=== PATIENT | female | born 1995 | race Caucasian/White ===

== ENCOUNTER → 2019-02-10 | Outpatient (CLI) | payer MEDICAID ==
[2019-02-10 11:31] LABS: BASOPHILS % (AUTO) 0 % (0-10); EOSINOPHILS % (AUTO) 3 % (0-10); HEMATOCRIT 39 % (35-52); HEMOGLOBIN 13.1 G/DL (11.5-16.0); LYMPHOCYTES % (AUTO) 22 % (12-44); MEAN CORPUSCULAR HEMOGLOBIN 28 PG (25-34); MEAN CORPUSCULAR HGB CONC 33 G/DL (32-36); MEAN CORPUSCULAR VOLUME 83 FL (80-99); MEAN PLATELET VOLUME 10.6 FL (7.4-10.4); MONOCYTES % (AUTO) 5 % (0-12); NEUTROPHILS % (AUTO) 70 % (42-75); PLATELET COUNT 265 10^3/uL (130-400); RED CELL DISTRIBUTION WIDTH 12.5 % (10.0-14.5); WHITE BLOOD COUNT 9.7 10^3/uL (4.3-11.0)
[2019-02-10 11:32] LABS: EOSINOPHILS # (AUTO) 0.3 10^3/uL (0.0-0.3); LYMPHOCYTES # (AUTO) 2.1 X 10^3 (1.0-4.0); MONOCYTES # (AUTO) 0.5 X 10^3 (0.0-1.0); NEUTROPHILS # (AUTO) 6.8 X 10^3 (1.8-7.8)
== END ==
LOC: LAB FS 10:12
PROVIDERS: ATTEND Family Medicine
DX: Z34.80 Encounter for supervision of other normal pregnancy, unspecified trimester (principal); Z3A.00 Weeks of gestation of pregnancy not specified
CPT/HCPCS: 36415; 84443; 85025; 86703; 86762; 86780; 86850; 86900; 86901; 87088; 87340

== ENCOUNTER → 2019-04-15 | Outpatient (CLI) | payer MEDICAID | LOC: LAB FS 15:55 | PROVIDERS: ATTEND Family Medicine | DX: Z34.80 Encounter for supervision of other normal pregnancy, unspecified trimester (principal) | CPT/HCPCS: 36415; 82105; 82677; 84702; 86336 ==

== ENCOUNTER → 2019-06-15 | Outpatient (CLI) | payer MEDICAID ==
[2019-06-15 11:32] LABS: BASOPHILS % (AUTO) 0 % (0-10); EOSINOPHILS # (AUTO) 0.3 10^3/uL (0.0-0.3); EOSINOPHILS % (AUTO) 3 % (0-10); HEMATOCRIT 34 % (35-52); HEMOGLOBIN 11.4 G/DL (11.5-16.0); LYMPHOCYTES # (AUTO) 1.4 X 10^3 (1.0-4.0); LYMPHOCYTES % (AUTO) 13 % (12-44); MEAN CORPUSCULAR HEMOGLOBIN 29 PG (25-34); MEAN CORPUSCULAR HGB CONC 34 G/DL (32-36); MEAN CORPUSCULAR VOLUME 86 FL (80-99); MEAN PLATELET VOLUME 10.8 FL (7.4-10.4); MONOCYTES # (AUTO) 0.4 X 10^3 (0.0-1.0); MONOCYTES % (AUTO) 3 % (0-12); NEUTROPHILS # (AUTO) 8.8 X 10^3 (1.8-7.8); NEUTROPHILS % (AUTO) 81 % (42-75); PLATELET COUNT 209 10^3/uL (130-400); RED CELL DISTRIBUTION WIDTH 13.7 % (10.0-14.5); WHITE BLOOD COUNT 10.9 10^3/uL (4.3-11.0)
== END ==
LOC: LAB FS 10:50
PROVIDERS: ATTEND Family Medicine
DX: Z34.90 Encounter for supervision of normal pregnancy, unspecified, unspecified trimester (principal)
CPT/HCPCS: 36415; 82950; 84443; 85025; 86780

== ENCOUNTER → 2019-06-17 | Outpatient (CLI) | payer MEDICAID | LOC: LAB FS 07:37 | PROVIDERS: ATTEND Family Medicine | DX: R73.02 Impaired glucose tolerance (oral) (principal) | CPT/HCPCS: 36415; 82951; 82952 ==

== ENCOUNTER 2019-08-18 17:22 | Inpatient (IN) | payer MEDICAID ==
[~2019-08-18] VITALS: Ht 160 cm; Wt 108.5 kg
[2019-08-18] VITALS (20 sets, daily range): BP systolic 107–137; BP diastolic 54–84
--- NOTE | 2019-08-18 16:52 | NUR ---
CARMELO ZULUAGA presented to unit via wheelchair from ED, accompanied by GIBRAN and MERISSA aCtes, with c/o CONTRACTIONS. CARMELO ZULUAGA weighed, gowned, voided, and to bed. EFHM and TOCO applied, VS taken. CARMELO ZULUAGA oriented to bed controls, call light, TV, heat, and A/C controls.
[2019-08-18] MEDS ORDERED: D5 LR IV SOLUTION 1,000 ML IV SCH (17:32)
[2019-08-18] MEDS ORDERED: MINERAL OIL CONCENTRATE 99.9% 15 ML UDC TOP PRN (17:45)
[2019-08-18 17:56] LABS: BASOPHILS % (AUTO) 0 % (0-10); EOSINOPHILS # (AUTO) 0.1 10^3/uL (0.0-0.3); EOSINOPHILS % (AUTO) 1 % (0-10); HEMATOCRIT 32 % (35-52); HEMOGLOBIN 10.6 G/DL (11.5-16.0); LYMPHOCYTES # (AUTO) 1.5 X 10^3 (1.0-4.0); LYMPHOCYTES % (AUTO) 12 % (12-44); MEAN CORPUSCULAR HEMOGLOBIN 28 PG (25-34); MEAN CORPUSCULAR HGB CONC 33 G/DL (32-36); MEAN CORPUSCULAR VOLUME 85 FL (80-99); MEAN PLATELET VOLUME 11.6 FL (7.4-10.4); MONOCYTES # (AUTO) 0.5 X 10^3 (0.0-1.0); MONOCYTES % (AUTO) 5 % (0-12); NEUTROPHILS # (AUTO) 9.7 X 10^3 (1.8-7.8); NEUTROPHILS % (AUTO) 82 % (42-75); PLATELET COUNT 191 10^3/uL (130-400); RED CELL DISTRIBUTION WIDTH 14.1 % (10.0-14.5); WHITE BLOOD COUNT 11.7 10^3/uL (4.3-11.0)
[2019-08-18] MEDS ORDERED: fentaNYL 2 mcg/ml BUPIVA 0.125 100 ML ONE (18:07)
--- NOTE | 2019-08-18 18:28 | History & Physical-OB ---
OB - Chief Complaint & HPI Date/Time Date of Admission: Date of Admission: Aug 18, 2019 at 17:22 Date seen by a Provider: Aug 18, 2019 Time Seen by a Provider: 18:30 Chief Complaint/History OB-Reason for Admission/Chief: Onset of Labor Hx : 3 Hx Para: 2 Gestational Age in Weeks: 37 Gestational Age in Days: 1 Admission Nurse Assessment Rev: Yes Allergies and Home Medications Allergies Coded Allergies: No Known Drug Allergies (Unverified , 08/18/19) Patient Home Medication List Home Medication List Reviewed: Yes OB - History Hx of Present Care: Yes Ultrasounds: Normal mid trimester US Obstetrical Complications: None Medical Complications: None Patient Past Medical History previously healthy OB - Admission Exam Physical Exam HEENT: NCAT Heart: Rhythm Normal Lungs: Clear Abdomen: Gravid Extremities: Normal Reflexes: Normal Cervical Dilatation: 6cm Effacement: 50% Station: -2 Membranes: Intact Heart Rate: 140's Accelerations: Accelerations Present Decelerations: No Decelerations Short Term Variability: Present Long-Term Variability: Average (6-25) Contractions on Admission: < 5 Minutes Apart Labs Laboratory Tests Test 08/18/19 17:45 Range/Units White Blood Count 11.7 H 4.3-11.0 10^3/uL Red Blood Count 3.76 L 4.35-5.85 10^6/uL Hemoglobin 10.6 L 11.5-16.0 G/DL Hematocrit 32 L 35-52 % Mean Corpuscular Volume 85 80-99 FL Mean Corpuscular Hemoglobin 28 25-34 PG Mean Corpuscular Hemoglobin Concent 33 32-36 G/DL Red Cell Distribution Width 14.1 10.0-14.5 % Platelet Count 191 130-400 10^3/uL Mean Platelet Volume 11.6 H 7.4-10.4 FL Neutrophils (%) (Auto) 82 H 42-75 % Lymphocytes (%) (Auto) 12 12-44 % Monocytes (%) (Auto) 5 0-12 % Eosinophils (%) (Auto) 1 0-10 % Basophils (%) (Auto) 0 0-10 % Neutrophils # (Auto) 9.7 H 1.8-7.8 X 10^3 Lymphocytes # (Auto) 1.5 1.0-4.0 X 10^3 Monocytes # (Auto) 0.5 0.0-1.0 X 10^3 Eosinophils # (Auto) 0.1 0.0-0.3 10^3/uL Basophils # (Auto) 0.0 0.0-0.1 10^3/uL OB - Assessment/Plan/Diagnosis Assessment Assessment: active labor Admission Dx Normal labor at 37 1/7 wga. Admission Status: Inpatient Order (span 2 midnights) Reason for Inpatient Admission: Normal labor. Plan Plan: Expectant Management JEREMY THOMAS MD Aug 18, 2019 18:28
[2019-08-18] MEDS ORDERED: fentaNYL INJECTION 100 MCG/2 ML AMP ONE (19:11)
[2019-08-18] MEDS ORDERED: OXYTOCIN PRE-MIX DRIP 500 ML IV SCH (19:14)
--- NOTE | 2019-08-18 19:15 | NUR ---
REPORT GIVEN TO SRI CRAVEN AT THIS TIME.
[2019-08-18] MEDS ORDERED: LACTATED RINGERS 1,000 ML IV ONE (19:30)
[2019-08-18] MEDS ORDERED: diphenhydrAMINE 50 MG/ML INJ (BENADRYL) IV PRN (19:30)
[2019-08-18] MEDS ORDERED: ONDANSETRON 4 MG/2 ML (SDV) Z0FRAN IV PRN (19:30)
[2019-08-18] MEDS ORDERED: METOCLOPRAMIDE INJ 10 MG/2 ML (REGLAN) IV PRN (19:30)
[2019-08-18] MEDS ORDERED: EPIDURAL (fentaNYL 2 MCG/ML BUPIVA 0.125%)100 ML BAG EPI PRN (19:30)
[2019-08-18] MEDS ORDERED: NALOXONE 0.4 MG/ML 1 ML (NARCAN) VIAL IV PRN ×2 (19:30)
--- NOTE | 2019-08-18 20:59 | NUR ---
EMAR NON ADMIN: Induction pitocin bag infusion rate increased to 999ml/hr per dr order and counts as first of 1000ml intake of post pitocin maintenance order.
--- NOTE | 2019-08-18 21:10 | OB Labor & Delivery Record ---
Vag Delivery Note Vag Delivery Note Date of Delivery: 08/18/19 Preoperative Diagnosis: Lou Naik is a (24 /Para 3 / 2, Gestational Age (wks)37with [1 day] Postoperative Diagnosis: Same Surgeon: JEREMY THOMAS Tank Tester: [none] Anesthesia: [epidural] Delivery Type: [] Findings: [] Viable [female] infant, apgars [8/9] Lacerations: Intact placenta with 3 vessel cord. No nuchal cord, body cord or shoulder dystocia Estimated Blood Loss: [200] ml Complications: None Condition: Stable Description of Procedure: The patient is a 24 year old female who presented [in labor]. She was admitted and informed consent was obtained. Her labor course was remarkable for [nothing] She progressed to complete dilatation and began to push. She was then set up for delivery. The infant's head was delivered atraumatically in the [OA] position. The shoulders and remainder of the 's body were then delivered without difficulty. Upon delivery, the head was held below the level of the perineum and the mouth and nares were bulb suctioned. The cord was doubly clamped and cut after 60 seconds by father of baby. Infant was then placed on maternal abdomen. An intact placenta with 3-vessel cord delivered via Josey and there was found to be minimal bleeding.~ Vigorous fundal massage was performed and the fundus was found to be firm. IV oxytocin was given. Examination of the vagina and perineum revealed no lacerations. Following the repair, sponge, instrument and needle counts were correct. Mom and baby were both in stable condition in the labor suite. Vitals - Labs Vital Signs - I&O Vital Signs Date Time Temp Pulse Resp B/P (MAP) Pulse Ox O2 Delivery O2 Flow Rate FiO2 08/18/19 20:15 111 18 121/69 (86) 100 Room Air 08/18/19 20:00 109 18 111/64 (80) 100 Room Air 08/18/19 19:45 36.9 113 18 121/65 (83) 99 Room Air 08/18/19 19:40 114 18 127/67 (87) 99 Room Air 08/18/19 19:35 113 18 120/62 (81) 100 Room Air 08/18/19 19:30 104 18 124/65 (84) 99 Room Air 08/18/19 19:25 123 122/66 (84) 99 Room Air 08/18/19 19:23 110 122/67 (85) 99 Room Air 08/18/19 19:20 122 120/65 (83) 100 Room Air 08/18/19 19:17 127 118/62 (80) 99 Room Air 08/18/19 19:12 129 116/60 (78) 100 Room Air 08/18/19 17:50 36.9 99 18 123/72 (89) 99 Room Air 08/18/19 17:50 36.9 99 18 99 Room Air Labs Laboratory Tests 08/18/19 17:45: White Blood Count 11.7H, Red Blood Count 3.76L, Hemoglobin 10.6L, Hematocrit 32L , Mean Corpuscular Volume 85, Mean Corpuscular Hemoglobin 28, Mean Corpuscular Hemoglobin Concent 33, Red Cell Distribution Width 14.1, Platelet Count 191, Me an Platelet Volume 11.6H, Neutrophils (%) (Auto) 82H, Lymphocytes (%) (Auto) 12, Monocytes (%) (Auto) 5, Eosinophils (%) (Auto) 1, Basophils (%) (Auto) 0, Neutrophils # (Auto) 9.7H, Lymphocytes # (Auto) 1.5, Monocytes # (Auto) 0.5, Eosinophils # (Auto) 0.1, Basophils # (Auto) 0.0 JEREMY THOMAS MD Aug 18, 2019 21:09
[2019-08-18] MEDS ORDERED: MEASLES,MUMPS,RUBELLA 1 EA INJ SQ ONE (21:15)
[2019-08-18] MEDS ORDERED: BENZOCAINE/MENTHOL (DERMOPLAST) 60 ML CAN TP PRN (21:15)
[2019-08-18] MEDS ORDERED: TETANUS,DIPTH,PERTUSS P/F (BOOSTRIX) 0.5 ML VIAL IM ONE (21:15)
[2019-08-18] MEDS ORDERED: WITCH HAZEL(TUCKS) 40 EA JAR TOP PRN (21:15)
[2019-08-18] MEDS: OXYTOCIN PRE-MIX DRIP 500 ML IV SCH ×2 (21:33→21:55)
[2019-08-18] MEDS ORDERED: CATHETER FLUSH 10 ML SYR IV SCH ×2 (22:00)
[2019-08-18] MEDS: ACETAMINOPHEN 500 MG TAB (TYLENOL) PO SCH (22:13)
--- OUTSIDE RECORDS SUMMARY | 2019-08-18 22:17 | XMS REPORT | Continuity of Care Document ---
Author Organization Unknown Address Unknown Phone Unavailable Allergies There is no data. Medications There is no data. Problems Date Dx Coded Attending Type Code Diagnosis Diagnosed By 02/12/2019 JEREMY THOMAS MD, Ot Z34.80 ENCOUNTER FOR SUPRVSN OF NORMAL PREGNANC 02/12/2019 JEREMY THOMAS MD, Ot Z3A.00 WEEKS OF GESTATION OF NOT SPEC 02/25/2019 JEREMY THOMAS MD, Ot Z34.80 ENCOUNTER FOR SUPRVSN OF NORMAL PREGNANC 02/25/2019 JEREMY THOMAS MD, Ot Z3A.00 WEEKS OF GESTATION OF NOT SPEC 04/17/2019 JEREMY THOMAS MD Ot Z34.80 ENCOUNTER FOR SUPRVSN OF NORMAL PREGNANC 06/16/2019 JEREMY THOMAS MD Ot Z34.90 ENCNTR FOR SUPRVSN OF NORMAL , 06/16/2019 JEREMY THOMAS MD, Ot Z34.90 ENCNTR FOR SUPRVSN OF NORMAL , 06/18/2019 JEREMY THOMAS MD Ot R73.02 IMPAIRED GLUCOSE TOLERANCE (ORAL) Procedures There is no data. Results Test Result Range CBC w/MANUAL DIFF - 06/16/18 10:21 WHITE BLOOD CELL COUNT 7.8 Thousand/uL 3 .8-10.8 RED BLOOD CELL COUNT 4.80 Million/uL 3.8 0-5.10 HEMOGLOBIN 12.9 g/dL 11.7-15.5 HEMATOCRIT 40.4 % 35.0-45.0 MCV 84.2 fL 80.0-100.0 MCH 26.9 pg 27.0-33.0 MCHC 31.9 g/dL 32.0-36.0 RDW 13.6 % 11.0-15.0 PLATELET COUNT 265 Thousand/uL 140-400 MPV 10.8 fL 7.5-12.5 ABSOLUTE NEUTROPHILS 4664 cells/uL 1500- 7800 ABSOLUTE MONOCYTES 320 cells/uL 200-950 ABSOLUTE EOSINOPHILS 406 cells/uL 15-500 ABSOLUTE BASOPHILS 78 cells/uL 0-200 NEUTROPHILS 59.8 % NRG LYMPHOCYTES 29.9 % NRG MONOCYTES 4.1 % NRG EOSINOPHILS 5.2 % NRG BASOPHILS 1.0 % NRG ABSOLUTE LYMPHOCYTES 2332 cells/uL 850-3 900 PLATELET ESTIMATION ADEQUATE ADEQUATE COMMENT(S) NRG TSH w/ FREE T4 - 09/29/18 10:25 TSH 1.47 mIU/L NRG T4, FREE 1.1 ng/dL 0.8-1.8 Complete blood count (CBC) with automate d white blood cell (WBC) differential - 02/10/19 10:37 Blood leukocytes automated count (number/volume) 9.7 10*3/uL 4.3-11.0 Blood erythrocytes automated count (number/volume) 4.73 10*6/uL 4.35-5.85 Venous blood hemoglobin measurement (mass/volume) 13.1 g/dL 11.5-16.0 Blood hematocrit (volume fraction) 39 % 35-52 Automated erythrocyte mean corpuscular volume 83 [ foz_us] 80-99 Automated erythrocyte mean corpuscular h emoglobin (mass per erythrocyte) 28 pg 25-34 Automated erythrocyte mean corpuscular h emoglobin concentration measurement (mass/volume) 33 g/dL 32-36 Automated erythrocyte distribution width ratio 12. 5 % 10.0- 14.5 Automated blood platelet count (count/volume) 265 10*3/uL 130-400 Automated blood platelet mean volume measurement 10.6 [foz_us] 7.4-10.4 Automated blood neutrophils/100 leukocytes 70 % 42-75 Automated blood lymphocytes/100 leukocytes 22 % 12-44 Blood monocytes/100 leukocytes 5 % 0-12 Automated blood eosinophils/100 leukocytes 3 % 0-10 Automated blood basophils/100 leukocytes 0 % 0-10 Blood neutrophils automated count (number/volume) 6.8 10*3 1.8-7.8 Blood lymphocytes automated count (number/volume) 2.1 10*3 1.0-4.0 Blood monocytes automated count (number/volume) 0. 5 10*3 0.0-1.0 Automated eosinophil count 0.3 10*3/uL 0 .0-0.3 Automated blood basophil count (count/volume) 0.0 10*3/uL 0.0-0.1 THYROID STIMULATING HORMONE - 02/10/19 1 0:37 THYROID STIMULATING HORMONE 2.28 u[iU]/mL 0.35-4.94 Blood type T Indirect antibody screen pa reji - 02/10/19 10:37 ABO+Rh group OP NRG Blood group antibody screen NEGATIVE NR G Human immunodeficiency virus (HIV) type 1 and 2 antibody detection - 02/10/19 10:37 Serum HIV 1+2 antibody detection by immunoblot Non-Reactive Non-Reactive Body fluid hepatitis B virus surface ant igen detection - 02/10/19 10:37 Confirmatory quantitative serum or plasm a hepatitis B virus surface antigen measurement Non-Reactive Non-Reactive RUBELLA ANTIBODY IGG - 02/10/19 10:37 Interpretation of serum rubella virus IgG antibody gibran t Positive Negative RUBELLA IGG AB 1.08 % 0.00-0.89 Serum reagin antibody assay (units/volum e) by RPR - 02/10/19 10:37 Serum reagin antibody assay (units/volume) by RPR Non-Reactive Non-Reactive Bacterial urine culture - 02/10/19 10:40 Bacterial urine culture 3 OR MORE NRG COLONY COUNT >100,000/ML NRG FTX;REPORTABLE GRAM POSITIVES, SUGGESTING PROBABLE NRG FREE TEXT ENTRY 2 COLLECTION CONTAMINATION WITH SK IN PATTI NRG FREE TEXT ENTRY 3 NO SUSCEPTIBILITY PERFORMED NRG [id number] - 04/15/19 16:06 [id number] 0.67 % NRG Race or ethnicity [OASIS] Caucasia NRG HCG MAT SCR 59.1 [iU]/mL NRG Insulin dependent diabetes mellitus [Presence] No NRG Mother's body weight --at delivery 219 % NRG Number of fetuses 1 % NRG Delivery date US composite estimate LMP NRG History of Neural tube defect Qualitative no NRG Down's syndrome [Minimum Data Set] No NRG INHIB A MAT SCR 174 pg/mL NRG Inhibin A [Multiple of the median] in Serum or Plasma 1.17 NRG NTD RISK <1:5000 NRG Age NRG DS RISK 1:2725 <1:270 Trisomy 18 risk [Likelihood] in Fetus < <1:100 Gestational age in weeks 19.3 NRG Choriogonadotropin [Multiple of the median] in Serum o r Plasma 3.51 NRG Estriol (E3).unconjugated [Mass/volume] in Serum or Pl asma 1.92 % NRG Estriol (E3) [Multiple of the median] in Serum or Plas ma 1.27 NRG Serum or plasma glucose measurement 3 ho urs post challenge (mass/volume) - 06/17/19 08:00 Serum or plasma glucose measurement 3 ho urs post challenge (mass/volume) NRG Complete blood count (CBC) with automate d white blood cell (WBC) differential - 08/18/19 17:45 Blood leukocytes automated count (number/volume) 11.7 10*3/uL 4.3-11.0 Blood erythrocytes automated count (number/volume) 3.76 10*6/uL 4.35-5.85 Venous blood hemoglobin measurement (mass/volume) 10.6 g/dL 11.5-16.0 Blood hematocrit (volume fraction) 32 % 35-52 Automated erythrocyte mean corpuscular volume 85 [ foz_us] 80-99 Automated erythrocyte mean corpuscular h emoglobin (mass per erythrocyte) 28 pg 25-34 Automated erythrocyte mean corpuscular h emoglobin concentration measurement (mass/volume) 33 g/dL 32-36 Automated erythrocyte distribution width ratio 14. 1 % 10.0- 14.5 Automated blood platelet count (count/volume) 191 10*3/uL 130-400 Automated blood platelet mean volume measurement 11.6 [foz_us] 7.4-10.4 Automated blood neutrophils/100 leukocytes 82 % 42-75 Automated blood lymphocytes/100 leukocytes 12 % 12-44 Blood monocytes/100 leukocytes 5 % 0-12 Automated blood eosinophils/100 leukocytes 1 % 0-10 Automated blood basophils/100 leukocytes 0 % 0-10 Blood neutrophils automated count (number/volume) 9.7 10*3 1.8-7.8 Blood lymphocytes automated count (number/volume) 1.5 10*3 1.0-4.0 Blood monocytes automated count (number/volume) 0. 5 10*3 0.0-1.0 Automated eosinophil count 0.1 10*3/uL 0 .0-0.3 Automated blood basophil count (count/volume) 0.0 10*3/uL 0.0-0.1 Blood type T Indirect antibody screen pa reji - 08/18/19 17:45 WRISTBAND NUMBER [id number] NRG ABO+Rh group OP NRG Blood group antibody screen NEGATIVE NR G Encounters ACCT No. Visit Date/Time Discharge Status Pt. Type Provider Facility Loc./Unit Complaint [id number] 07/27/2019 09:30:00 07/27/2019 23:59: 59 CLS Outpatient [facility] [id number] 09/29/2018 10:00:00 Document Registration [id number] 06/16/2018 09:40:00 Document Registration [id number] 06/17/2019 07:37:00 23:59:59 CLS Outpatient JEREMY THOMAS MD [facility] LAB FS ABNORMAL GLUCOSE TOLERA NCE TEST [id number] 06/15/2019 10:50:00 23:59:59 CLS Outpatient JEREMY THOMAS MD [facility] LAB FS SUPERVISION OF NORMAL P REGNANCY [id number] 04/15/2019 15:55:00 23:59:59 CLS Outpatient JEREMY THOMAS MD [facility] LAB FS Z34.80 [id number] 02/10/2019 10:12:00 019 23:59:59 CLS Outpatient JEREMY THOMAS MD [facility] LAB FS Z34.80 [id number] 08/18/2019 18:01:00 Document Registration
--- NOTE | 2019-08-18 22:30 | NUR ---
Epidural cath removed, tip in tact, site wnl and left o/a, asymptomatic per pt report. Pt up standby to bathroom, pericare pads changed, pt to wc and transferred to pp unit room 311, oriented to surroundings and call system, remains under the care of this rn.
[2019-08-19] VITALS (7 sets, daily range): BP systolic 105–144; BP diastolic 55–85
[2019-08-19] MEDS: IBUPROFEN 600 MG (MOTRIN) TAB PO SCH ×4 (00:05→17:49)
[2019-08-19] MEDS: ACETAMINOPHEN 500 MG TAB (TYLENOL) PO SCH ×2 (05:15→14:46)
[2019-08-19 05:26] LABS: BASOPHILS % (AUTO) 0 % (0-10); EOSINOPHILS # (AUTO) 0.1 10^3/uL (0.0-0.3); EOSINOPHILS % (AUTO) 1 % (0-10); HEMATOCRIT 30 % (35-52); HEMOGLOBIN 10.1 G/DL (11.5-16.0); LYMPHOCYTES % (AUTO) 15 % (12-44); MEAN CORPUSCULAR HEMOGLOBIN 28 PG (25-34); MEAN CORPUSCULAR HGB CONC 33 G/DL (32-36); MEAN CORPUSCULAR VOLUME 85 FL (80-99); MEAN PLATELET VOLUME 11.5 FL (7.4-10.4); MONOCYTES % (AUTO) 8 % (0-12); NEUTROPHILS # (AUTO) 10.4 X 10^3 (1.8-7.8); NEUTROPHILS % (AUTO) 77 % (42-75); PLATELET COUNT 180 10^3/uL (130-400); RED CELL DISTRIBUTION WIDTH 14.1 % (10.0-14.5); WHITE BLOOD COUNT 13.6 10^3/uL (4.3-11.0)
--- NOTE | 2019-08-19 08:10 | Anesthesia-Regional Post-Op ---
Regional Patient Condition Mental Status: Alert, Oriented x3 Circulation: Same as Pre-Op Headache: Absent Sensation: Full Recovery Motor Block: Absent Post Op Complications Complications None Follow Up Care/Instructions Patient Instructions None needed. Anesthesia/Patient Condition Patient is doing well, no complaints, stable vital signs, no apparent adverse anesthesia problems. No complications reported per nursing. AMENA FLORES CRNA Aug 19, 2019 08:10
[2019-08-19] MEDS ORDERED: DOCUSATE SODIUM 100 MG (COLACE) CAP PO SCH (09:00)
--- NOTE | 2019-08-19 10:43 | NUR ---
report received from MERISSA Allen. care assumed of pt.
--- NOTE | 2019-08-19 12:25 | Discharge Summary ---
Discharge Inst-[facility] Reconcile Patient Problems Problems Reviewed?: Yes Depart Medications New, Converted or Re-Newed RX: Transmitted to Pharmacy Follow Up/Instructions Goal/Follow Up: Dr. Thomas at 6 weeks Activity Activity: Activity as Tolerated Driving Instructions: You May Drive NO SMOKING: NO SMOKING Nothing Inside Vagina: No Douching, No Meraux, No Tampons Diet Discharge Diet: No Restrictions Symptoms to Report to : Fever Over 101 Degrees F, Vaginal Bleeding Increase For Any Problems or Questions: Contact Your Physician JEREMY THOMAS MD Aug 19, 2019 12:25
--- NOTE | 2019-08-19 12:45 | NUR ---
stork meal served.
--- NOTE | 2019-08-19 13:06 | NUR ---
CM/SS: Followed up with staff about notification from physician about Pt being unable to afford diabetic supplies. Spoke with RN for pt and they indicate that they have not been checking the pts blood sugars and that she is not diabetic. The notification was sent in error.
--- NOTE | 2019-08-19 17:00 | NUR ---
here. dismissal orders received
--- NOTE | 2019-08-19 17:05 | Discharge Summary ---
Diagnosis/Chief Complaint Date of Admission Aug 18, 2019 at 17:22 Date of Discharge August 19, 2019 Admission Diagnosis Admission Diagnosis Normal labor at 37 1/7 wga Discharge Diagnosis Vaginal delivery at 37 1/7 wga Discharge Summary-OBS Procedures None. Discharge Physical Examination Allergies: Coded Allergies: No Known Drug Allergies (Unverified , 08/18/19) Vitals & I&Os Vital Sign - Last 12Hours Date Time Temp Pulse Resp B/P (MAP) Pulse Ox O2 Delivery O2 Flow Rate FiO2 08/19/19 12:45 36.5 77 18 121/60 (80) 97 Room Air General Appearance: Alert, Oriented X3 HEENT: Atraumatic Respiratory: Clear to Auscultation Cardiovascular: Regular Rate Abdominal: Other (fundus firm below umbilicus) Extremities: No Edema Skin: No Rashes Neuro: Normal Gait Psych/Mental Status: Mental Status NL Hospital Course Was the Problem List Reviewed?: Yes Normal course. Labs Laboratory Tests 08/18/19 17:45: White Blood Count 11.7H, Red Blood Count 3.76L, Hemoglobin 10.6L, Hematocrit 32L , Mean Corpuscular Volume 85, Mean Corpuscular Hemoglobin 28, Mean Corpuscular Hemoglobin Concent 33, Red Cell Distribution Width 14.1, Platelet Count 191, Mean Platelet Volume 11.6H, Neutrophils (%) (Auto) 82H, Lymphocytes (%) (Auto) 12, Monocytes (%) (Auto) 5, Eosinophils (%) (Auto) 1, Basophils (%) (Auto) 0, Neutrophils # (Auto) 9.7H, Lymphocytes # (Auto) 1.5, Monocytes # (Auto) 0.5, Eosinophils # (Auto) 0.1, Basophils # (Auto) 0.0 08/19/19 05:15: White Blood Count 13.6H, Red Blood Count 3.56L, Hemoglobin 10.1L, Hematocrit 30L , Mean Corpuscular Volume 85, Mean Corpuscular Hemoglobin 28, Mean Corpuscular Hemoglobin Concent 33, Red Cell Distribution Width 14.1, Platelet Count 180, Mean Platelet Volume 11.5H, Neutrophils (%) (Auto) 77H, Lymphocytes (%) (Auto) 15, Monocytes (%) (Auto) 8, Eosinophils (%) (Auto) 1, Basophils (%) (Auto) 0, Neutrophils # (Auto) 10.4H, Lymphocytes # (Auto) 2.0, Monocytes # (Auto) 1.0, Eosinophils # (Auto) 0.1, Basophils # (Auto) 0.0 Discharge Instructions to patient/family Please see electronic discharge instructions given to patient. Discharge Medications Reviewed and agree with Discharge Medication list on patient's Discharge Instruction sheet Clinical Quality Measures DVT/VTE Risk/Contraindication: Risk Factor Score Per Nursin RFS Level Per Nursing on Admit: 2=Moderate JEREMY THOMAS MD Aug 19, 2019 17:05
--- NOTE | 2019-08-19 18:52 | NUR ---
dismissal instructions given, verbalizes understanding. reviewed follow up appointment and OTC medications. signature page signed, placed on chart.
--- NOTE | 2019-08-19 19:10 | NUR ---
report given to next shift.
--- NOTE | 2019-08-19 23:10 | NUR ---
D/C instructions reviewed, pt. verbalized understanding, denies pain or needs, appreciative. Pt. left [facility] ambulatory escorted by Marcella Joseph, RN & SO, SO carrying infant in carseat. Pt. left via private vehicle w/SO & , to home via private vehicle.
== END 2019-08-19 23:10 | disposition home or self-care (01) | DRG 807 ==
LOC: LDRP 17:22
PROVIDERS: ADMIT Family Medicine; ATTEND Family Medicine
PROC: 10E0XZZ Delivery of Products of Conception, External Approach (ICD-10-PCS; principal; 2019-08-18)
DX: O80 Encounter for full-term uncomplicated delivery (principal); Z37.0 Single live birth; Z3A.37 37 weeks gestation of pregnancy
CPT/HCPCS: 36415; 85025; 86850; 86900; 86901